=== PATIENT | female | born 1955 | race Caucasian/White ===

== ENCOUNTER 2025-04-09 07:35 | Inpatient (IN) | payer MEDICAID ==
[~2025-04-09] VITALS: Ht 160 cm; Wt 74.2 kg
[~2025-04-09 07:35] MED LIST: ATOR40TA70 MT; LEVO750T68 MT; METR500T MT
[2025-04-09 07:52] VITALS: O2SAT 99
[2025-04-09 08:17] LABS: CLARITY URINE CLOUDY (CLEAR); COLOR URINE DARK YELLOW (YELLOW); GLUCOSE URINE NEGATIVE (NEGATIVE); KETONES URINE NEGATIVE (NEGATIVE); LEUKOCYTE ESTERASE URINE 3+ (NEGATIVE); NITRITE URINE POSITIVE (NEGATIVE); OCCULT BLOOD URINE NEGATIVE (NEGATIVE); PH URINE 6.0 (4.5-8.0); PROTEIN URINE TRACE (NEGATIVE); SPECIFIC GRAVITY URINE 1.013 (1.005-1.030); UROBILINOGEN URINE 1.0 E.U./dL (0.2-1.0)
[2025-04-09 08:33] LABS: BACTERIA URINE 3+; RBC URINE 0-2 /hpf (0-2); SQUAMOUS EPITHELIAL CELL URINE 2+ /lpf (RARE/1+); WBC URINE 25-50 /hpf (0-2); YEAST URINE NONE SEEN
[2025-04-09 09:13] LABS: BASOPHILS % 1.0 % (0.0-2.0); EOSINOPHILS % 0.4 % (0.0-5.0); HEMATOCRIT. 40.9 % (36.0-48.0); HEMOGLOBIN. 13.6 g/dL (12.0-16.0); LYMPHOCYTES % 32.7 % (20.0-50.0); MEAN PLATELET VOLUME 9.9 fl (7.4-10.4); MONOCYTES % 5.7 % (2.0-8.0); NEUTROPHILS % 60.2 % (40.0-76.0); PLATELET 236 x1000/uL (130-400); RED BLOOD CELL COUNT 4.51 mill/uL (4.2-5.4); RED CELL DISTRIBUTION WIDTH 16.6 % (11.6-14.6)
[2025-04-09 09:23] LABS: CREATININE 0.9 mg/dL (0.6-1.0); UREA NITROGEN BLOOD 11 mg/dL (9-23)
[2025-04-09 09:25] LABS: ASPARTATE AMINOTRANSFERASE 186 IU/L (<34); BILIRUBIN DIRECT 13.2 mg/dL (<=3.0); BILIRUBIN TOTAL 18.0 mg/dL (0.1-1.0); PROTEIN TOTAL 7.7 g/dL (6.0-8.3)
[2025-04-09] MEDS: CEFTRIAXONE 1GM/50ML 50 ML IV ONE (09:29)
[2025-04-09] MEDS ORDERED: MORPHINE SULFATE 2 MG/ML INJ (NOT FOR IM USE) IV PRN (14:30)
[2025-04-09] MEDS ORDERED: ACETAMINOPHEN 325MG TABLET PO PRN (14:30)
[2025-04-09] MEDS ORDERED: MAGNESIUM/ALUMINUM HYDROXIDE/SIMETHICONE 30ML UDC PO PRN (14:30)
[2025-04-09] MEDS ORDERED: ZOLPIDEM TARTRATE 5MG TABLET PO PRN (14:30)
[2025-04-09] MEDS ORDERED: CLONIDINE 0.1MG TABLET PO PRN (14:30)
[2025-04-09] MEDS ORDERED: NALOXONE HCL 0.4MG/ML VIAL IV PRN (14:45)
[2025-04-09 16:00] VITALS: BP 135/88; PULSE 50; RESP 17; TEMP 36.3; O2SAT 96
[2025-04-09 16:11] LABS: *AMPHETAMINES SCREEN URINE NEGATIVE (NEGATIVE); *BARBITURATES SCREEN URINE NEGATIVE (NEGATIVE); *BENZODIAZEPINES SCREEN URINE NEGATIVE (NEGATIVE); *COCAINE SCREEN URINE NEGATIVE (NEGATIVE); METHADONE URINE SCREEN NEGATIVE (NEGATIVE); OPIATES URINE SCREEN NEGATIVE (NEGATIVE)
[2025-04-09 16:12] LABS: CANNABINOID URINE SCREEN NEGATIVE (NEGATIVE); ECSTASY MDMA SCREEN URINE NEGATIVE (NEGATIVE); PHENCYCLIDINE URINE SCREEN NEGATIVE (NEGATIVE)
[2025-04-09 17:00] VITALS: BP 135/88; PULSE 50; RESP 17; TEMP 36.3068
[2025-04-09 19:00] LABS: HEPATITIS A AB IGM NEGATIVE (Negative)
[2025-04-09 19:01] LABS: HEPATITIS B CORE AB IGM NEGATIVE (Negative); HEPATITIS C AB NON REACTIVE (Neg) (Negative)
[2025-04-09] MEDS: ONDANSETRON HCL 4MG/2ML INJ IV PRN (19:02)
[2025-04-09] MEDS: ENOXAPARIN 40MG/0.4ML SYR SUBCUT SCH (19:05)
[2025-04-09] MEDS: SODIUM CHLORIDE 0.9% 1,000 ML IV SCH (19:06)
[2025-04-09] MEDS: PIPERACILLIN/TAZO 3.375G/50ML 50 ML IV SCH (19:06)
[2025-04-09 20:00] VITALS: BP 113/57; PULSE 56; RESP 18; TEMP 36.8; O2SAT 98
[2025-04-09] MEDS: HYDROCODONE/ACETAMINOPHEN 5/325MG TABLET PO PRN (20:38)
[2025-04-10] VITALS: BP 99/46; PULSE 54; RESP 18; TEMP 36.5; O2SAT 100
[2025-04-10 04:00] VITALS: BP 104/49; PULSE 52; RESP 18; TEMP 36.5; O2SAT 99
[2025-04-10 08:00] VITALS: BP 103/51; PULSE 51; RESP 17; TEMP 36.2; O2SAT 97
[2025-04-10] MEDS: PANTOPRAZOLE SODIUM 40 MG/VIAL IV SCH (08:39)
[2025-04-10] MEDS: LACTULOSE 20G/30ML UDC PO SCH (08:39)
[2025-04-10 09:23] LABS: BASOPHILS % 0.8 % (0.0-2.0); EOSINOPHILS % 1.5 % (0.0-5.0); HEMATOCRIT. 35.6 % (36.0-48.0); HEMOGLOBIN. 12.1 g/dL (12.0-16.0); LYMPHOCYTES % 42.0 % (20.0-50.0); MEAN PLATELET VOLUME 10.2 fl (7.4-10.4); MONOCYTES % 7.1 % (2.0-8.0); NEUTROPHILS % 48.6 % (40.0-76.0); PLATELET 194 x1000/uL (130-400); RED BLOOD CELL COUNT 3.95 mill/uL (4.2-5.4); RED CELL DISTRIBUTION WIDTH 16.5 % (11.6-14.6)
[2025-04-10 09:37] LABS: CREATININE 0.7 mg/dL (0.6-1.0)
[2025-04-10 09:38] LABS: UREA NITROGEN BLOOD 14 mg/dL (9-23)
[2025-04-10 09:39] LABS: ASPARTATE AMINOTRANSFERASE 114 IU/L (<34)
[2025-04-10 09:40] LABS: BILIRUBIN TOTAL 15.8 mg/dL (0.1-1.0); PROTEIN TOTAL 6.1 g/dL (6.0-8.3)
[2025-04-10 12:00] VITALS: BP 108/61; PULSE 60; RESP 18; TEMP 36.3; O2SAT 96
[2025-04-10] MEDS ORDERED: DIATR MEGLU/DIATRIZOATE SOLN 30ML PO NR (12:30)
[2025-04-10 16:00] VITALS: BP 117/60; PULSE 56; RESP 18; TEMP 36.4; O2SAT 98
[2025-04-10 20:00] VITALS: BP 130/53; PULSE 65; RESP 16; TEMP 36.6; O2SAT 97
[2025-04-11] VITALS: BP 105/61; PULSE 53; RESP 17; TEMP 36.5; O2SAT 98
[2025-04-11 04:00] VITALS: BP 107/46; PULSE 55; RESP 18; TEMP 36.5; O2SAT 100
[2025-04-11 05:12] LABS: ALPHA FETOPROTEIN TUMOR MARKER 4.1 ng/mL (0.0-9.2); CA 19-9 51.0 U/mL (0-35)
[2025-04-11 07:22] LABS: BASOPHILS % 0.7 % (0.0-2.0); EOSINOPHILS % 1.5 % (0.0-5.0); HEMATOCRIT. 35.6 % (36.0-48.0); HEMOGLOBIN. 12.1 g/dL (12.0-16.0); LYMPHOCYTES % 38.3 % (20.0-50.0); MEAN PLATELET VOLUME 10.1 fl (7.4-10.4); MONOCYTES % 5.9 % (2.0-8.0); NEUTROPHILS % 53.6 % (40.0-76.0); PLATELET 200 x1000/uL (130-400); RED BLOOD CELL COUNT 3.96 mill/uL (4.2-5.4); RED CELL DISTRIBUTION WIDTH 16.4 % (11.6-14.6)
[2025-04-11 07:40] LABS: CREATININE 0.7 mg/dL (0.6-1.0); UREA NITROGEN BLOOD 9 mg/dL (9-23)
[2025-04-11 07:41] LABS: ASPARTATE AMINOTRANSFERASE 92 IU/L (<34); LACTATE DEHYDROGENASE 159 IU/L (120-246); LDL CHOLESTEROL 334 mg/dL (5-100)
[2025-04-11 07:42] LABS: BILIRUBIN TOTAL 15.8 mg/dL (0.1-1.0); PROTEIN TOTAL 6.2 g/dL (6.0-8.3)
[2025-04-11 07:48] LABS: TRIGLYCERIDE 331 mg/dL (0-150)
[2025-04-11 08:00] VITALS: BP 110/55; PULSE 58; RESP 18; TEMP 36.2; O2SAT 98
[2025-04-11 12:00] VITALS: BP 104/56; PULSE 54; RESP 18; TEMP 36.3; O2SAT 98
[2025-04-11] MEDS ORDERED: GADOTERATE MEGLUMINE 5 MMOL/10 ML VIAL IV ONE (15:59)
[2025-04-11 16:00] VITALS: BP 120/54; PULSE 60; RESP 18; TEMP 36.3; O2SAT 98
[2025-04-11 20:00] VITALS: BP 112/58; PULSE 60; RESP 18; TEMP 36.2; O2SAT 94
[2025-04-12] VITALS: BP 117/55; PULSE 57; RESP 20; TEMP 36.2; O2SAT 97
[2025-04-12 04:00] VITALS: BP 119/56; PULSE 51; RESP 20; TEMP 36.3; O2SAT 96
[2025-04-12 04:02] LABS: BASOPHILS % 0.9 % (0.0-2.0); EOSINOPHILS % 1.6 % (0.0-5.0); HEMATOCRIT. 39.0 % (36.0-48.0); HEMOGLOBIN. 13.3 g/dL (12.0-16.0); LYMPHOCYTES % 36.3 % (20.0-50.0); MEAN PLATELET VOLUME 9.6 fl (7.4-10.4); MONOCYTES % 5.6 % (2.0-8.0); NEUTROPHILS % 55.6 % (40.0-76.0); PLATELET 215 x1000/uL (130-400); RED BLOOD CELL COUNT 4.34 mill/uL (4.2-5.4); RED CELL DISTRIBUTION WIDTH 17.3 % (11.6-14.6)
[2025-04-12 07:13] LABS: INR 1.1
[2025-04-12 07:19] LABS: CREATININE 0.7 mg/dL (0.6-1.0); UREA NITROGEN BLOOD 8 mg/dL (9-23)
[2025-04-12 07:21] LABS: ASPARTATE AMINOTRANSFERASE 92 IU/L (<34); PROTEIN TOTAL 6.2 g/dL (6.0-8.3)
[2025-04-12 07:30] LABS: BILIRUBIN TOTAL 14.7 mg/dL (0.1-1.0)
[2025-04-12 08:00] VITALS: BP 121/48; PULSE 59; RESP 17; TEMP 36.4; O2SAT 98
[2025-04-12 10:08] LABS: CA 19-9 40.0 U/mL (0-35)
[2025-04-12] MEDS ORDERED: PROPOFOL 200MG/20ML VIAL IV ONE (10:34)
[2025-04-12] MEDS ORDERED: ETOMIDATE 2MG/ML 10ML VIAL IV ONE (10:34)
[2025-04-12] MEDS ORDERED: HYDRALAZINE 20MG/ML VIAL IV PRN (11:30)
[2025-04-12] MEDS ORDERED: ONDANSETRON HCL 4MG/2ML INJ IV PRN (11:30)
[2025-04-12] MEDS ORDERED: DEXAMETHASONE 4MG/ML 1ML VIAL IV PRN (11:30)
[2025-04-12] MEDS ORDERED: GLYCOPYRROLATE 0.2MG/ML VIAL 5ML IV PRN (11:30)
[2025-04-12] MEDS ORDERED: HYDROMORPHONE HCL/PF 1MG/ML INJ IV PRN ×2 (11:30)
[2025-04-12] MEDS: METOCLOPRAMIDE HCL 10MG/2ML VIAL IV SCH (12:45)
[2025-04-12 13:12] LABS: ALPHA FETOPROTEIN TUMOR MARKER 3.2 ng/mL (0.0-9.2); CARCINOEMBRYONIC AG - SEND OUT 5.0 ng/mL (0.0-4.7)
[2025-04-12 16:00] VITALS: BP 119/59; PULSE 69; RESP 16; TEMP 36.3; O2SAT 99
[2025-04-12] MEDS: LEVOFLOXACIN 750MG PREMIX 150 ML IV SCH (17:43)
[2025-04-12 20:00] VITALS: BP 121/57; PULSE 60; RESP 19; TEMP 36.2; O2SAT 99
[2025-04-13] VITALS: BP 119/57; PULSE 58; RESP 18; TEMP 35.8; O2SAT 98
[2025-04-13 04:00] VITALS: BP 111/53; PULSE 53; RESP 19; TEMP 36.3; O2SAT 97
[2025-04-13 08:00] VITALS: BP 132/61; PULSE 60; RESP 19; TEMP 36.9; O2SAT 99
[2025-04-13 10:58] LABS: BASOPHILS % 0.3 % (0.0-2.0); EOSINOPHILS % 0.6 % (0.0-5.0); HEMATOCRIT. 29.3 % (36.0-48.0); HEMOGLOBIN. 9.5 g/dL (12.0-16.0); LYMPHOCYTES % 26.5 % (20.0-50.0); MEAN PLATELET VOLUME 9.5 fl (7.4-10.4); MONOCYTES % 4.9 % (2.0-8.0); NEUTROPHILS % 67.7 % (40.0-76.0); PLATELET 158 x1000/uL (130-400); RED BLOOD CELL COUNT 3.17 mill/uL (4.2-5.4); RED CELL DISTRIBUTION WIDTH 16.9 % (11.6-14.6)
[2025-04-13 11:13] LABS: UREA NITROGEN BLOOD 5 mg/dL (9-23)
[2025-04-13 11:14] LABS: ASPARTATE AMINOTRANSFERASE 55 IU/L (<34)
[2025-04-13 11:15] LABS: BILIRUBIN TOTAL 10.7 mg/dL (0.1-1.0)
[2025-04-13 11:57] LABS: CREATININE 0.3 mg/dL (0.6-1.0); PROTEIN TOTAL 4.0 g/dL (6.0-8.3)
[2025-04-13 12:00] VITALS: BP 130/56; PULSE 57; RESP 18; TEMP 36.4; O2SAT 99
[2025-04-13] MEDS: KCL 20MEQ/100ML PREMIX 100 ML IV SCH (14:39)
[2025-04-13 16:00] VITALS: BP 158/76; PULSE 61; RESP 15; TEMP 36.4; O2SAT 98
[2025-04-13 20:00] VITALS: BP 146/81; PULSE 64; RESP 20; TEMP 36.6; O2SAT 99
[2025-04-13] MEDS: DOCUSATE SODIUM 100MG CAPSULE PO SCH (23:14)
[2025-04-14] VITALS: BP 123/65; PULSE 69; RESP 20; TEMP 36.4; O2SAT 98
[2025-04-14 04:00] VITALS: BP_SYST 106; BP_SYST 145; BP_DIAS 55; BP_DIAS 81; PULSE 55; PULSE 64; RESP 20; TEMP 36.4; TEMP 36.6; O2SAT 98; O2SAT 99
[2025-04-14 08:00] VITALS: BP 115/56; PULSE 56; RESP 18; RESP 21; TEMP 36.6; O2SAT 96
[2025-04-14 09:12] LABS: BASOPHILS % 0.5 % (0.0-2.0); EOSINOPHILS % 1.0 % (0.0-5.0); LYMPHOCYTES % 31.4 % (20.0-50.0); MEAN PLATELET VOLUME 10.0 fl (7.4-10.4); MONOCYTES % 5.4 % (2.0-8.0); NEUTROPHILS % 61.7 % (40.0-76.0); PLATELET 226 x1000/uL (130-400); RED BLOOD CELL COUNT 3.94 mill/uL (4.2-5.4); RED CELL DISTRIBUTION WIDTH 17.1 % (11.6-14.6)
[2025-04-14 09:36] LABS: UREA NITROGEN BLOOD 7 mg/dL (9-23)
[2025-04-14 09:37] LABS: ASPARTATE AMINOTRANSFERASE 92 IU/L (<34)
[2025-04-14 09:38] LABS: PROTEIN TOTAL 6.5 g/dL (6.0-8.3)
[2025-04-14 09:57] LABS: HEMATOCRIT. 35.5 % (36.0-48.0); HEMOGLOBIN. 12.0 g/dL (12.0-16.0)
[2025-04-14 09:58] LABS: BILIRUBIN TOTAL 16.5 mg/dL (0.1-1.0); CREATININE 0.6 mg/dL (0.6-1.0)
[2025-04-14 12:00] VITALS: BP 118/59; PULSE 61; RESP 18; TEMP 36.6; O2SAT 99
[2025-04-14 16:00] VITALS: BP 137/64; PULSE 67; RESP 21; TEMP 36.6; O2SAT 97
[2025-04-14 20:00] VITALS: BP 138/67; PULSE 76; RESP 18; TEMP 36.5; O2SAT 100
[2025-04-15] VITALS (7 sets, daily range): BP systolic 104–139; BP diastolic 54–78; PULSE 59–97; RESP 15–21; TEMP 36.1–36.8; O2SAT 98–100
[2025-04-15 06:56] LABS: BASOPHILS % 0.6 % (0.0-2.0); EOSINOPHILS % 0.8 % (0.0-5.0); HEMATOCRIT. 36.4 % (36.0-48.0); HEMOGLOBIN. 12.3 g/dL (12.0-16.0); LYMPHOCYTES % 29.3 % (20.0-50.0); MEAN PLATELET VOLUME 9.5 fl (7.4-10.4); MONOCYTES % 6.8 % (2.0-8.0); NEUTROPHILS % 62.5 % (40.0-76.0); PLATELET 223 x1000/uL (130-400); RED BLOOD CELL COUNT 4.05 mill/uL (4.2-5.4); RED CELL DISTRIBUTION WIDTH 16.6 % (11.6-14.6)
[2025-04-15 07:16] LABS: CREATININE 0.6 mg/dL (0.6-1.0); UREA NITROGEN BLOOD 9 mg/dL (9-23)
[2025-04-15 07:18] LABS: ASPARTATE AMINOTRANSFERASE 101 IU/L (<34); BILIRUBIN TOTAL 18.4 mg/dL (0.1-1.0); PROTEIN TOTAL 6.3 g/dL (6.0-8.3)
[2025-04-15] MEDS: NA PHOS,M-B/NA PHOS,DI-BA ENEMA 118ML PR NR (15:10)
[2025-04-16] VITALS: BP 111/52; PULSE 50; RESP 18; TEMP 36; O2SAT 99
[2025-04-16 04:00] VITALS: BP 110/56; PULSE 84; RESP 18; TEMP 36.6; O2SAT 97
[2025-04-16 06:28] LABS: UREA NITROGEN BLOOD 7 mg/dL (9-23)
[2025-04-16 06:29] LABS: ASPARTATE AMINOTRANSFERASE 89 IU/L (<34)
[2025-04-16 06:30] LABS: BILIRUBIN TOTAL 18.5 mg/dL (0.1-1.0); PROTEIN TOTAL 6.3 g/dL (6.0-8.3)
[2025-04-16 06:38] LABS: BASOPHILS % 0.6 % (0.0-2.0); EOSINOPHILS % 0.9 % (0.0-5.0); HEMATOCRIT. 36.5 % (36.0-48.0); HEMOGLOBIN. 12.4 g/dL (12.0-16.0); LYMPHOCYTES % 25.7 % (20.0-50.0); MEAN PLATELET VOLUME 9.9 fl (7.4-10.4); MONOCYTES % 6.4 % (2.0-8.0); NEUTROPHILS % 66.4 % (40.0-76.0); PLATELET 229 x1000/uL (130-400); RED BLOOD CELL COUNT 4.05 mill/uL (4.2-5.4); RED CELL DISTRIBUTION WIDTH 17.4 % (11.6-14.6)
[2025-04-16 07:30] LABS: CREATININE 0.5 mg/dL (0.6-1.0)
[2025-04-16 08:00] VITALS: BP 125/50; PULSE 58; RESP 15; TEMP 36.2; O2SAT 97
[2025-04-16 12:00] VITALS: BP 125/63; PULSE 58; RESP 15; TEMP 36.6; O2SAT 98
[2025-04-16 13:11] LABS: CA 27.29 27.8 U/mL (0.0-38.6)
[2025-04-16 16:00] VITALS: BP 118/53; PULSE 61; RESP 16; TEMP 36.2; O2SAT 99
[2025-04-16 20:00] VITALS: BP 139/81; PULSE 65; RESP 18; TEMP 36.3; O2SAT 100
[2025-04-17] VITALS: BP 113/55; PULSE 54; RESP 18; TEMP 36.2; O2SAT 98
[2025-04-17 04:00] VITALS: BP 100/59; PULSE 58; RESP 18; TEMP 36.2; O2SAT 100
[2025-04-17 08:00] VITALS: BP 119/60; PULSE 53; RESP 18; TEMP 36.3; O2SAT 100
[2025-04-17] MEDS ORDERED: BISACODYL 10MG SUPP PR PRN (08:00)
[2025-04-17 11:36] LABS: BASOPHILS % 0.7 % (0.0-2.0); EOSINOPHILS % 0.9 % (0.0-5.0); HEMATOCRIT. 35.5 % (36.0-48.0); HEMOGLOBIN. 12.2 g/dL (12.0-16.0); LYMPHOCYTES % 29.9 % (20.0-50.0); MEAN PLATELET VOLUME 9.9 fl (7.4-10.4); MONOCYTES % 6.0 % (2.0-8.0); NEUTROPHILS % 62.5 % (40.0-76.0); PLATELET 232 x1000/uL (130-400); RED BLOOD CELL COUNT 3.95 mill/uL (4.2-5.4); RED CELL DISTRIBUTION WIDTH 17.9 % (11.6-14.6)
[2025-04-17 11:52] LABS: CREATININE 0.6 mg/dL (0.6-1.0); UREA NITROGEN BLOOD 6 mg/dL (9-23)
[2025-04-17 11:54] LABS: ASPARTATE AMINOTRANSFERASE 91 IU/L (<34)
[2025-04-17 11:55] LABS: BILIRUBIN TOTAL 18.5 mg/dL (0.1-1.0); PROTEIN TOTAL 6.2 g/dL (6.0-8.3)
[2025-04-17 12:00] VITALS: BP 120/54; PULSE 54; RESP 18; TEMP 36.4; O2SAT 100
[2025-04-17 16:00] VITALS: BP 135/64; PULSE 63; RESP 18; TEMP 36.1; O2SAT 18
[2025-04-17 20:00] VITALS: BP 137/62; PULSE 66; RESP 20; TEMP 36.5; O2SAT 98
[2025-04-18] VITALS: BP 116/61; PULSE 61; RESP 20; TEMP 36.3; O2SAT 98
[2025-04-18 04:00] VITALS: BP 128/60; PULSE 58; RESP 19; TEMP 36.2; O2SAT 98
[2025-04-18 06:14] LABS: BASOPHILS % 0.5 % (0.0-2.0); EOSINOPHILS % 1.1 % (0.0-5.0); HEMATOCRIT. 34.9 % (36.0-48.0); HEMOGLOBIN. 11.8 g/dL (12.0-16.0); LYMPHOCYTES % 27.6 % (20.0-50.0); MEAN PLATELET VOLUME 9.9 fl (7.4-10.4); MONOCYTES % 6.3 % (2.0-8.0); NEUTROPHILS % 64.5 % (40.0-76.0); PLATELET 224 x1000/uL (130-400); RED BLOOD CELL COUNT 3.88 mill/uL (4.2-5.4); RED CELL DISTRIBUTION WIDTH 17.4 % (11.6-14.6)
[2025-04-18 06:18] LABS: CREATININE 0.5 mg/dL (0.6-1.0)
[2025-04-18 06:19] LABS: UREA NITROGEN BLOOD 6 mg/dL (9-23)
[2025-04-18 06:20] LABS: ASPARTATE AMINOTRANSFERASE 92 IU/L (<34)
[2025-04-18 06:21] LABS: BILIRUBIN TOTAL 18.0 mg/dL (0.1-1.0); PROTEIN TOTAL 6.0 g/dL (6.0-8.3)
[2025-04-18 08:00] VITALS: BP 122/60; PULSE 65; RESP 15; TEMP 36.9; O2SAT 98
[2025-04-18 11:51] VITALS: BP 122/60; PULSE 65; RESP 15; TEMP 98.4
== END 2025-04-18 11:50 | disposition short-term general hospital (02) ==
LOC: ER 07:35 → 6WST 14:15 → EDBEDREQTM 14:20 → EDBEDREQ 14:20 → ENRESERV 14:49
PROVIDERS: ADMIT Internal Medicine; ATTEND Internal Medicine
PROC: 0DB78ZX Excision of Stomach, Pylorus, Via Natural or Artificial Opening Endoscopic, Diagnostic (ICD-10-PCS; principal; 2025-04-16)
PROC: 0F9C8ZZ Drainage of Ampulla of Vater, Via Natural or Artificial Opening Endoscopic (ICD-10-PCS; 2025-04-16)
DX: K80.20 Calculus of gallbladder without cholecystitis without obstruction (principal); E87.0 Hyperosmolality and hypernatremia; R16.0 Hepatomegaly, not elsewhere classified; K29.50 Unspecified chronic gastritis without bleeding; R17 Unspecified jaundice; N39.0 Urinary tract infection, site not specified; I10 Essential (primary) hypertension; R74.01 Elevation of levels of liver transaminase levels; R97.0 Elevated carcinoembryonic antigen [CEA]; E78.5 Hyperlipidemia, unspecified; R63.4 Abnormal weight loss; K31.A0 Gastric intestinal metaplasia, unspecified; R10.84 Generalized abdominal pain; K82.8 Other specified diseases of gallbladder; E87.6 Hypokalemia; Z15.01 Genetic susceptibility to malignant neoplasm of breast; Z85.3 Personal history of malignant neoplasm of breast; Z68.29 Body mass index [BMI] 29.0-29.9, adult
CPT/HCPCS: 36415; 74183; 76705; 80048; 80053; 80061; 80076; 80305; 81003; 82105; 82330; 82378; 82962; 83036; 83615; 84443; 85025; 86300; 86301; 86304; 86705; 86709; 86850; 86900; 87077; 87186; 87340; 88305; 88312; 88313; 93005; 93970; 96365; 99285; A4606; A9577; J0696; J1650; J1956; J2405; J2470; J2543; J2704; J2765; J3480; J3490; J7040

== ENCOUNTER 2025-07-09 23:35 | Emergency (ER) | payer MEDICAID ==
[~2025-07-09] VITALS: Ht 157.5 cm; Wt 79.0 kg
[2025-07-10 00:04] VITALS: O2SAT 98
[2025-07-10] MEDS: ACETAMINOPHEN 500MG TABLET PO ONE (01:11)
[2025-07-10] MEDS: TETANUS, DIPHTHERIA, PERTUSSIS VAC/PF 0.5ML (>10YR OLD) IM ONE (01:13)
[2025-07-10 04:15] LABS: BASOPHILS % 0.5 % (0.0-2.0); EOSINOPHILS % 0.6 % (0.0-5.0); HEMATOCRIT. 47.0 % (36.0-48.0); HEMOGLOBIN. 15.4 g/dL (12.0-16.0); LYMPHOCYTES % 48.0 % (20.0-50.0); MEAN PLATELET VOLUME 8.5 fl (7.4-10.4); MONOCYTES % 4.4 % (2.0-8.0); NEUTROPHILS % 46.5 % (40.0-76.0); PLATELET 233 x1000/uL (130-400); RED BLOOD CELL COUNT 4.99 mill/uL (4.2-5.4); RED CELL DISTRIBUTION WIDTH 13.6 % (11.6-14.6)
[2025-07-10 04:35] LABS: TROPONIN I HIGH SENSITIVITY < 4 ng/L (3.0-34)
[2025-07-10 04:36] LABS: CREATININE 0.6 mg/dL (0.6-1.0); UREA NITROGEN BLOOD 8 mg/dL (9-23)
[2025-07-10 04:37] LABS: ASPARTATE AMINOTRANSFERASE 19 IU/L (<34)
[2025-07-10 04:38] LABS: BILIRUBIN DIRECT 0.3 mg/dL (<=3.0); BILIRUBIN TOTAL 0.9 mg/dL (0.1-1.0); PROTEIN TOTAL 7.3 g/dL (6.0-8.3)
[2025-07-10] MEDS ORDERED: BO1 TP (05:33)
[2025-07-10] MEDS ORDERED: ACET-2708 MT (05:33)
[2025-07-10 06:12] VITALS: BP 145/95; PULSE 66; RESP 17; TEMP 36.9; O2SAT 97
[2025-07-10] MEDS ORDERED: IOHEXOL-350 100 ML BOTTLE ONE (06:24)
== END 2025-07-10 06:12 | disposition home or self-care (01) ==
LOC: ER 23:35 → CMPBEDREQ 07-10 07:56
DX: S61.211A Laceration without foreign body of left index finger without damage to nail, initial encounter (principal); E78.00 Pure hypercholesterolemia, unspecified; I10 Essential (primary) hypertension; R07.9 Chest pain, unspecified; R06.02 Shortness of breath; Z79.899 Other long term (current) drug therapy; Z90.49 Acquired absence of other specified parts of digestive tract; X58.XXXA Exposure to other specified factors, initial encounter; Y93.89 Activity, other specified; Y92.89 Other specified places as the place of occurrence of the external cause; Y99.8 Other external cause status
CPT/HCPCS: 99285; 80076; 80048; 83880; 85025; 85379; 84484; 36415; 74174; 71045; 71275; 90715; 93005; 12001; 90471; Q9967; Z7610

== ENCOUNTER 2025-07-16 16:46 | Emergency (ER) | payer MEDICAID ==
[~2025-07-16] VITALS: Ht 154.9 cm; Wt 67.0 kg
[~2025-07-16 16:46] MED LIST changes: +ACET-2708 MT; +BO1 TP
[2025-07-16 16:56] VITALS: BP 148/58; TEMP 36.9; O2SAT 100
[2025-07-16 18:01] VITALS: PULSE 86; RESP 18; O2SAT 99
== END 2025-07-16 21:02 | disposition left against medical advice (07) ==
LOC: ER 16:46
DX: M79.646 Pain in unspecified finger(s) (principal); Z53.21 Procedure and treatment not carried out due to patient leaving prior to being seen by health care provider
CPT/HCPCS: 99281